=== PATIENT | female | born 1940 | race Caucasian/White ===

== ENCOUNTER 2021-06-09 05:31 | Day surgery (SDC) | payer MEDICARE ==
[~2021-06-09] VITALS: Ht 167.6 cm; Wt 72.7 kg
[2021-06-09] VITALS (12 sets, daily range): BP systolic 103–151; BP diastolic 46–77; PULSE 63–97; TEMP 97.2–98.6
[2021-06-09] MEDS ORDERED: PRINIVIL20 MG PO (07:00)
[2021-06-09] MEDS ORDERED: ZOCOR 40MG40 MG PO (07:01)
[2021-06-09] MEDS ORDERED: NORVASC 5MG5 MG/TAB PO (07:01)
[2021-06-09] MEDS ORDERED: ALLEGRA-D 24HR1 T24 PO (07:02)
[2021-06-09] MEDS ORDERED: TYLENOL 8 HR PO (07:04)
[2021-06-09] MEDS ORDERED: TYLENOL 500MG500 MG PO ×2 (07:04→14:57)
[2021-06-09] MEDS ORDERED: CVS SPECTRAVIT1 EA15 PO (07:05)
[2021-06-09] MEDS ORDERED: [UNRECOGNIZED DRUG - OTHER] PO (07:06)
[2021-06-09] MEDS ORDERED: FOLIC ACID800 MCG PO (07:08)
[2021-06-09] MEDS ORDERED: ONE DAILY MULTI1 TA1 PO (07:09)
[2021-06-09] MEDS ORDERED: VITAMIN C500 MG PO (07:10)
[2021-06-09] MEDS ORDERED: CITRACAL-D3 ER1 EACH PO (07:11)
[2021-06-09] MEDS ORDERED: TURMERIC500 MG PO (07:12)
[2021-06-09] MEDS ORDERED: STOOL SOFTENER100 M2 PO (07:12)
[2021-06-09] MEDS ORDERED: ASPIRIN 32325 MG/TA1 PO (07:13)
--- NOTE | 2021-06-09 09:35 | NUR ---
PATIENT ADMITED INTO ROOM 327 POST OP LTK. ORIENTED BUT DROWSY. VSS. 02 @ 2L PER NC WITH SATS IN MOD 90'S. DENIES PAIN OR NAUSEA. UNABLE TO MOVE BLE AT THIS TIME. LLE DRESSING IS CD&I WITH ACEWRAP AND ICE PACK INPLACE. TEDS TO RLE. SCD'S TO BLE. POSITIVE PEDAL PULSES TO BLE. IV FLUIDS INFUSING INTO RIGHT HAND IV. TOLERATING ICE CHIPS. HEAD TO TOE ASSESSMENT WNL. LEFT TO RUN SOME ERRAND AND WILL RETURN SHORTLY. ORIENTED TO ROOM. CALL LIGHT IN REACH. PATEINT SLEEPING, LIGHTS TURNED DOWN.
--- NOTE | 2021-06-09 14:15 | NUR ---
PHYSICAL THERAPY AT BEDSIDE TO EVAL AND TREAT, SEE PT NOTES.
[2021-06-09] MEDS ORDERED: ASPI325T6 PO (14:56)
[2021-06-09] MEDS ORDERED: ROXICODONE 55 MG/TAB PO (14:57)
[2021-06-09] MEDS ORDERED: CELEBREX 200MG200 MG PO (14:57)
--- NOTE | 2021-06-09 15:55 | NUR ---
Patient complains of starting to feel pain. Scheduled tylenol given in addition to PRN oxycodone. Patient sitting in recliner, talking with family. Instructed on how to order meals, menu given. Patient is alert, oriented x4. Jello given with pain medications, oral fluids encouraged. Call light within reach.
--- NOTE | 2021-06-10 03:17 | NUR ---
Pt has had an uneventful night. Full body assessment and medication pass completed without difficulty; vital signs WNL. Pt has had minimal complaints of pain throughout the evening. Pt has orders for a brace to her affected extremity, will relay this to dayshift d/t not having any braces available on the floor at the time. Will continue to monitor, call light within reach.
[2021-06-10 03:56] VITALS: BP 140/69; PULSE 85; TEMP 98.1
--- NOTE | 2021-06-10 05:48 | NUR ---
Pt tolerating oral intake and has completed current course of antibiotics. IV site to INT, LR no longer running.
[2021-06-10 06:02] LABS: HEMOGLOBIN 11.6 g/dl (12.5-16.0)
[2021-06-10 06:12] LABS: HEMATOCRIT 35.9 % (37.0-47.0)
--- NOTE | 2021-06-10 09:00 | NUR ---
PATIENT IS A&O AND SITTING UP IN BEDSIDE CHAIR. PATIENT REQUESTING SOMETHING FOR PAIN. GAVE PRN ROXICODONE WITH AM MEDS. BREAKFAST TRAY AT BEDSIDE. NO C/O N/V. RIGHT HAND IV TO INT. LEFT KNEE DRESSING IS CD&I WITH AQUACEL. TEDS TO RLE AND SCD'S TO BLE. POSITIVE PEDAL PULSES TO BLE. PT/OT CONSULTED. CALLED [employer]ERIAL[employer] FOR TECHNOL BRACE ORDERED FOR DISCHARGE AT HS, GIVEN TO PATIENT. ORTHO ROUNDED EARLY THIS AM. PATIENT WILL DISCHARGE HOME AFTER PM THERAPY. HEAD TO TOE ASSESSMENT COMPLETE. NO OTHER NEEDS AT THIS TIME. CALL LIGHT IN REACH.
--- NOTE | 2021-06-10 09:05 | NUR ---
CHELSEA met with the patient to discuss discharge plan. The patient lives in [place] with her , Mulugeta (ph#[phone]). She reports independence with ADLs and has a cane and walker. The patient's PCP is Dr. Susan Hernandes and she receives her medications from [email or web address]. The patient does not have a DPOA-HC in EMR, but she states that she does have one completed and that she designated her . The patient had a left total knee done. PT recommends home with family. OT recommends home with home health. CHELSEA discussed this with the patient. The patient plans on returning home with her and states that she already has therapy set up as outpatient at [facility]. She plans to pursue with this. No additional needs at this time. *Discharge plan: home with and outpatient therapy*
--- NOTE | 2021-06-10 09:14 | NUR ---
Initial visit; Patient doing well eating breakfast and in a happy state. [employer] Representative offered God's blessings and will keep Kim in her prayers.
[2021-06-10 09:33] VITALS: BP 164/52; PULSE 96; TEMP 98.2
[2021-06-10 11:41] VITALS: BP 135/57; PULSE 87; TEMP 98.3
--- NOTE | 2021-06-10 16:00 | NUR ---
PATIENT DISCHARGING HOME VIA WC TO PERSONAL VEHICLE WITH . GAVE DISCHARGE INSTRUCTIONS, TECHNOL BRACE & PT SCRIPT SENT, AND F/U APTS DISCUSSED. ANSWERED QUESTIONS/CONCERNS. DC'D RIGHT HAND IV AND COVERED SITE WITH GAUZE & COBAN. PATIENT IS DRESSED, PACKED AND ESCORTED OUT.
== END 2021-06-10 16:00 | disposition home or self-care (01) ==
LOC: SDCO 05:31 → SURG 09:35 → SDCO 10:00
PROVIDERS: Physician Assistant
DX: M17.12 Unilateral primary osteoarthritis, left knee (principal)
CPT/HCPCS: OP; A9284; C1713; C1776; J0690; J1100; J2250; J2405; J2704; J3010; J7120; J7121; L1830